=== PATIENT | female | born 1980 | race Caucasian/White ===

== ENCOUNTER 2019-01-19 07:35 | Emergency (ER) | payer OTHER ==
--- OUTSIDE RECORDS SUMMARY | 2019-01-19 07:40 | XMS REPORT | Continuity of Care Document ---
:1980 External Reference #:[id number] Author Name Reina Mckeon PA Address [phone] [place] [address] Care Team Providers Name Role Phone Mary Anne Sosa MD, PHD Care Team Information Advisor Consultant Unavailable Mary Anne Sosa MD, PHD Primary Care Physician Unavailable Payers Date Identification Numbers Payment Provider Subscriber Policy Number: [id number] [facility] Kezia Kimball PayID: [id number] [address] [place] [address] Advance Directives Description No Information Available Problems Date Description Provider Status Onset: 03/28/2017 Migraine without aura, not Susan Low M.D. Active refractory Onset: 03/28/2018 Candidiasis of mouth Mary Anne Sosa MD, PHD Active Onset: 03/28/2018 Acute maxillary sinusitis Mary Anne Sosa MD, PHD Active Family History Date Family Member(s) Observation Comments Father Father Alive & Well Mother Mother Alive & Well : (age 50 Paternal Grandfather due to NC Years) Paternal Grandmother Alzheimer's Disease : (age 86 Paternal Grandmother due to NC Years) Maternal Grandfather Rheumatic Fever : (age 91 Maternal Grandfather due to Unknown Causes Years) Maternal Grandfather Heart Disease Maternal Grandfather Heart Attack Maternal Grandfather Stroke : (age 100 Maternal Grandmother due to Unknown Causes Years) Maternal Grandmother Breast Cancer Maternal Grandmother Stroke Maternal Grandmother Heart Disease Social History Type Date Description Comments Sex Unknown Lives With Diet Patient follows no dietary restrictions Occupation Professor Jorge Álvarez, Biology ADL's/IADL's Independent with all ADL's ADL's/IADL's Independent with all IADL's Tobacco Use Start: Unknown Never Smoked Cigarettes Smoking Status Reviewed: 01/07/19 Never Smoked Cigarettes ETOH Use Denies alcohol use Tobacco Use Start: Unknown Patient has never smoked Allergies, Adverse Reactions, Alerts Description No Known Drug Allergies Medications Medication Date Status Form Strength Qnty SIG Indications Ordering Provider Cefdinir 01/07 Active Capsules 300mg 20cap 1 tab by Marichuy Espinoza s mouth twice MD Loreta a day Fluticasone 01/07 Active Suspension 50mcg/Act 9.9un 1 spray to Marichuy Espinoza its each nare MD Loreta every day Synthroid 06/19 Active Tablets 125mcg 144ta take 2 bs tablets by Amanda mouth on , RESEARCH NURSE sunday and sunday, and 1 tablet on other days Amoxicillin 03/28 Hx Tablets 875mg 14tab 1 tab by Robin. Ian, s mouth twice Mary Anne, - a day , PHD 04/04 Saline Nasal 03/28 Hx Solution 0.65% 1unit 2 sprays Amol01.Lin Sosa [place] s intranasal Mary Anne, - every 2 , PHD congestion Fluconazole 03/28 Hx Tablets 150mg 1tabs 1 by mouth Amol01. Ian once can Mary Anne, - repeat in 1 , PHD Levothyroxine 04/17 Hx Tablets 125mcg 36tab 2 by mouth Maranda, Sodium s MW and 1 by Susan, - mouth every M.D. 06/19 other day Synthroid 12/26 Hx Tablets 100mcg 45tab 1 tablet by Maranda s mouth daily Susan, - on Sun, Sun, M.D. 04/17, Sun, Th. Take 2 tablets by mouth on Sun and Sunday. Blood work due04/20/17 Synthroid 12/25 Hx Tablets 88mcg 30tab Take 1 E03.9 Maranda, s tablet by Susan, - mouth daily M.D. 12/26 in the morning on an empty stomach for underactive thyroid Levo-T Hx Tablets 88mcg 1 Tab Per Unknown / Day - 12/26 + Hx THPK 0.267&373 Once Daily Unknown Complete /0000 mg Multi/Dha/Choli - ne/Folate 01/07 Folic Acid Hx Tablets 1mg Take 2 Unknown / Tablets By - Mouth Every Immunizations CPT Code Status Date Vaccine Lot # [id number] Given 10/16/2017 Influenza Virus Vaccine [place] Iiv4 [place] [id number] Given 12/25/2016 Influenza Virus Vaccine Split Virus Use For [id number] Individual 3Yr Older Vital Signs Date Vital Result Comment 01/07/2019 1:41pm BP Systolic 118 mmHg BP Diastolic 74 mmHg Body Temperature 97.2 F Heart Rate 82 /min Respiratory Rate 20 /min Height 73 inches 6'1" Weight 184.00 lb BMI (Body Mass Index) 24.3 kg/m2 BSA (Body Surface Area) 2.08 m2 [place] body weight in kilograms 75 kg O2 % BldC Oximetry 98 % 03/28/2018 10:57am BP Systolic 112 mmHg BP Diastolic 73 mmHg Body Temperature 98.2 F Height 73 inches 6'1" Weight 187.00 lb BMI (Body Mass Index) 24.7 kg/m2 BSA (Body Surface Area) 2.09 m2 [place] body weight in kilograms 75 kg 05/22/2017 10:57am BP Systolic Sitting Left Arm 118 mmHg BP Diastolic Sitting Left Arm 72 mmHg Body Temperature 98.1 F Height 73 inches 6'1" Weight 196.00 lb BMI (Body Mass Index) 25.9 kg/m2 BSA (Body Surface Area) 2.13 m2 [place] body weight in kilograms 75 kg Last Menstrual Period [id number] 03/28/2017 9:07am BP Systolic Sitting Left Arm 118 mmHg BP Diastolic Sitting Left Arm 70 mmHg Height 73 inches 6'1" Weight 187.00 lb BMI (Body Mass Index) 24.7 kg/m2 BSA (Body Surface Area) 2.09 m2 [place] body weight in kilograms 75 kg 12/25/2016 2:54pm BP Systolic 108 mmHg BP Diastolic 78 mmHg Body Temperature 98.4 F Heart Rate 70 /min Respiratory Rate 18 /min Height 73 inches 6'1" Weight 178.00 lb BMI (Body Mass Index) 23.5 kg/m2 BSA (Body Surface Area) 2.05 m2 [place] body weight in kilograms 75 kg O2 % BldC Oximetry 98 % Results Test Date Facility Test Result H/L Range Note Laboratory test 09/10/2018 [facility] Thyroid Stim 2.49 uIU/mL N 0.30-4.20 [address] Hormone [place], [place] [id number] [phone] Hemoglobin/Hemat 08/29/2017 [facility] Hemoglobin 11.8 gm/dL N 11.6-15.8 2 ocrit [address] [place], [place] [id number] [phone] Hematocrit 34.9 % Low 36.0-46.1 Laboratory test 08/29/2017 [facility] Screen NEGATIVE N 3 finding [address] [place], [place] [address] [phone] CBC 08/27/2017 [facility] White Blood 14.4 K/uL High 3.1-10. [address] Count 7 [place], [place] [id number] [phone] Red Blood Count 4.22 M/uL N 3.90-5.40 Hemoglobin 13.3 gm/dL N 11.6-15.8 Hematocrit 38.2 % N 36.0-46.1 Mean Cell Volume 90.5 fl N 80.9-99.0 Mean Corpuscular HGB 31.5 pg N 25.9-32.7 Mean Corpuscular HGB Conc 34.8 g/dL High 30.8-34.3 Platelet Count 249 K/uL N 150-400 Red Cell Distri Width %CV 13.3 % N 11.7-14.4 Mean Platelet Volume 12.5 fL High 8.9-12.4 Type And Screen 08/27/2017 [facility] Patient Blood Type A NEG N [address] [place], [place] [id number] [phone] Antibody Screen POSITIVE Abnormal Negative Laboratory test 08/27/2017 [facility] Antibody Identification RD N 4 finding [address] [place], [place] [id number] [phone] Treponema Antibody Rowan Negative Negative 5 Laboratory test 08/27/2017 [facility] Thyroid Stim 2.17 uIU/mL N 0.30-4.20 [address] [place] [address] [phone] Free T4 1.14 ng/dL N 0.76-1.46 Free T3 2.08 pg/mL Low 2.18-3.98 Laboratory test 05/22/2017 [facility] Thyroid Stim 1.36 uIU/mL N 0.30-4.[address] [place] [address] [phone] Free T4 1.23 ng/dL N 0.76-1.46 Free T3 2.50 pg/mL N 2.18-3.98 TSH Reflex FT4 04/16/2017 [facility] Thyroid Stim 3.28 uIU/mL N 0.30-4.20 And/Or FT3 [address] [place] [address] [phone] Reflex add FT3? Y Reflex add FT4? Y TSH Reflex 03/21/2017 [facility] [address] Thyroid Stim 5.19 uIU/mL High 0.30 -4.20 FT4 And/Or [address] [facility] Hormone FT3 [place], [place] [address] [phone] Reflex add FT3? Y Reflex add FT4? Y Free T3 03/21/2017 [facility] [address] Free T3 2.58 pg/mL N 2.18-3.[address] [place] [id number] [phone] Reflex add FT3? Y Reflex add FT4? Y Free T4 03/21/2017 [facility] [address] Free T4 1.15 ng/dL N 0.76-1.46 [address] [place], [place] [address] [phone] Reflex add FT3? Y Reflex add FT4? Y TSH Reflex 12/25/2016 [facility] [address] Thyroid Stim 4.74 uIU/mL High 0.30 -4.20 FT4 And/Or [address] [facility] Hormone FT3 [place] [address] [phone] Reflex add FT3? Y Reflex add FT4? Y HCG, Quant 12/25/2016 [facility] [address] HCG, Quant 895.0 mIU/mL N 7 [address] [place] [address] [phone] Reflex add FT3? Y Reflex add FT4? Y Free T3 12/25/2016 [facility] [address] Free T3 2.34 pg/mL N 2.18-3.98 [address] [place] [address] [phone] Reflex add FT3? Y Reflex add FT4? Y Free T4 12/25/2016 [facility] [address] Free T4 1.43 ng/dL N 0.76-1.46 [address] [place] [address] [phone] Reflex add FT3? Y Reflex add FT4? Y 1 WAITING FOR ORDER 2 TERM PREG,LABOR 3 Blood Type A NEG 4 PER ALVERTO Rodriguez R.N. AT [facility] L D DEPT., PATIENT RECIEVED RHOGAM ON 06/08/[address] YANIQUE ROSALES'S OFFICE. 5 Performed at: - [address] [id number] [place] Operator: Nicholas Murcia MD, Phone: [phone] E70.9 7 Approximate Gestational Age and Total BHCG Range: 0.2 - 1 Week........................5-50 mIU/mL 1 - 2 Weeks.....................50-500 mIU/mL 2 - 3 Weeks..................100-5,000 mIU/mL 3 - 4 Weeks.................500-10,000 mIU/mL 4 - 5 Weeks...............1,000-50,000 mIU/mL 5 - 6 Weeks.............10,000-100,000 mIU/mL 6 - 8 Weeks.............15,000-200,000 mIU/mL 2 - 3 Months............10,000-100,000 mIU/mL Procedures Description No Information Available Encounters Type Date Location Provider Dx Diagnosis Office Visit 03/28/2018 [facility] Mary Anne Sosa, J01.01 Acute recurrent 10:45a Yordan Canales MD, PHD maxillary sinusitis B37.83 Candidal cheilitis Office 05/22/2017 [facility] Lyn, S40.861A Insect bite Visit 10:45a [facility] [place], RESEARCH NURSE (nonvenomous) of RD right upper arm, init encntr Z33.1 state, incidental Office Visit 03/28/2017 9:00a [facility] Susan Low, E03.9 Hypothyroidism, Alba GOOD M.D. unspecified G43.009 Migraine w/o aura, not intractable, w/o status migrainosus Office Visit 12/25/2016 [facility] Mat, E03.9 Hypothyroidism, 3:00p [facility] [place] Myriam Preciado, unspecified RD RESEARCH NURSE-C Z32.01 Encounter for test, result positive Z23 Encounter for immunization Plan of Treatment 01/07/2019 - Reina Mckeon, ROBBIE01.90 Acute sinusitis, unspecifiedNew Medication: Cefdinir 300 mg - 1 tab by mouth twice a dayFluticasone Propionate 50 mcg/Act - 1 spray to each nare every dayComments:Complete medications as prescribed.Provide plenty of clear fluids. Alternate Tylenol and Motrin as needed. Call office as needed if symptoms worsen or persist longer than expected.
[2019-01-19 07:44] VITALS: BP 105/64
--- NOTE | 2019-01-19 07:51 | UC ---
Skin Complaint HPI - HPI Summary HPI Summary: Patient is 38 year old woman , who present today to the urgent care with left nipple for past 3-4 days. She reports that she was on cefdinir for sinusitis which has improved and for past 3-4 days she noticed left nipple redness and pain which progressively got worse over the past 2 days. She got concerned for thrush. She is breast-feeding her 16-year-old son and almost weaning off breast-feeding at this time.. She denies any nipple discharge.She pumped last night, expressed one to 2 ounces. Denies any fever, chills - History of Current Complaint Chief Complaint: UCSkin Time Seen by Provider: 01/19/19 07:44 Stated Complaint: SKIN Hx Obtained From: Patient Hx Last Menstrual Period: Jan 03 ?: No Pain Intensity: 2 - Allergy/Home Medications Allergies/Adverse Reactions: Allergies Allergy/AdvReac Type Severity Reaction Status Date / Time No Known Allergies Allergy Verified 01/19/19 07:44 Home Medications: Home Medications Cefdinir [Cefdinir 300 MG CAP] 300 mg PO BID 01/19/19 [History Confirmed ] Levothyroxine TAB* [Synthroid TAB*] 125 mcg PO 0800 01/19/19 [History Confirmed 01/19/19] PMH/Surg Hx/FS Hx/Imm Hx - Additional Past Medical History Additional PMH: Hypothyroidism Previously Healthy: Yes - Surgical History Surgical History: None - Social History Alcohol Use: Rare Substance Use Type: None Smoking Status (MU): Never Smoked Tobacco Review of Systems All Other Systems Reviewed And Are Negative: Yes Constitutional: Positive: Negative Skin: Positive: Other - Left nipple redness, pain and swelling Eyes: Positive: Negative ENT: Positive: Negative Respiratory: Positive: Negative Cardiovascular: Positive: Negative Gastrointestinal: Positive: Negative Genitourinary: Positive: Negative Motor: Positive: Negative Neurovascular: Positive: Negative Musculoskeletal: Positive: Negative Neurological: Positive: Negative Psychological: Positive: Negative Is Patient Immunocompromised?: No Physical Exam - Summary Physical Exam Summary: Physical Exam: Const: Appears well. No signs of apparent distress present. Alert and oriented x 3. Musculo: Walks with a normal gait. Head/Face: Atraumatic, normocephalic on inspection. Eyes: EOMI and PERRLA in both eyes. Conjunctivae clear. No discharge noted ENT: Hearing normal, CVS: Regular rate and Rhythm, S1S2 normal , no murmurs identified. Extremities: Peripheral circulation is grossly normal. Pulses 2+ Abdomen : Soft non tender , nondistended , Bowel sounds present . No guarding , rebound tenderness or rigidity noted. Skin: Left breast examination chaperoned by GUANAKITO Chinchilla. Left nipple redness and swelling noted. Exquisite tenderness is noted at the left nipple. A small pus spot noted at the nipple. There is no tenderness in the breast itself, no nodules identified. There is no discharge from the nipple. No axillary lymphadenopathy noted. Neuro: Cranial nerves II to XII intact, motor and sensory intact. DTR Intact bilaterally. Mood is normal. Affect is normal. Triage Information Reviewed: Yes Vital Signs: Initial Vital Signs Temp 97.9 F 01/19/19 07:39 Pulse 72 01/19/19 07:39 Resp 18 01/19/19 07:39 BP 105/64 01/19/19 07:39 Pulse Ox 97 01/19/19 07:39 Vital Signs Reviewed: Yes Course/Dx - Course Course Of Treatment: During the visit today, wediscussed the findings and further plan to treat it with antibiotics. She is almost weaning off breast- feeding at this time and right breast does not express any more milk. We discussed that she should pump the left breast and discard the milk at this time until she is completely symptom free and completed the course of antibiotics. I will prescribe the medication to the pharmacy . Patient expressed understanding . - Diagnoses Provider Diagnosis: Mastitis, Nipple infection associated with Discharge - Sign-Out/Discharge Documenting (check all that apply): Patient Departure All imaging exams completed and their final reports reviewed: No Studies - Discharge Plan Condition: Stable Disposition: HOME Prescriptions: Cephalexin CAP* [Keflex CAP*] 500 mg PO TID 10 Days #30 cap Patient Education Materials: Mastitis (ED) Referrals: No Primary Care Phys,NOPCP [Primary Care Provider] - Tomi Neves MD [Medical Doctor] - 1 Week Additional Instructions: Please start taking the medication as prescribed to the pharmacy . Warm compresses will be helpful Tylenol or ibuprofen as needed for pain control pump and discard the milk until completion of antibiotics/symptom-free Follow up with your primary care doctor/ OB doctor in 1 week Return to Urgent care / ER if symptoms get worse. - Billing Disposition and Condition Condition: STABLE Disposition: Home
== END 2019-01-19 08:22 | disposition home or self-care (01) ==
LOC: UCEAST 07:35
DX: N61.0 Mastitis without abscess (principal); E03.9 Hypothyroidism, unspecified; Z79.899 Other long term (current) drug therapy
CPT/HCPCS: 99202; G0463